=== PATIENT | male | born 1950 | race Caucasian/White ===

== ENCOUNTER 2016-08-14 23:15 | Emergency (ER) | payer OTHER ==
[~2016-08-14] VITALS: Ht 172.7 cm; Wt 90.0 kg
[~2016-08-14 23:15] MED LIST: ACID1TAB14 PO; ATEN50TA PO; CLIN-73 PO; LEVE750T70 PO; LEVO50TA83 PO
[2016-08-14 23:17] VITALS: Ht 172.7 cm; Wt 90.0 kg
--- NOTE | 2016-08-15 01:53 | RADRPT ---
PROCEDURE: XR Left Foot. CLINICAL INDICATION: Generalized pain in the left foot. TECHNIQUE: 3 views of the left foot was obtained. The images were reviewed on a PACS workstation. COMPARISON: 07/25/2016. FINDINGS: Postsurgical pain fixation of the first interphalangeal joint. Pain fixators are without significant business change manager the interval. The bones of the foot appear intact, with no evidence of fracture, dislocation, or subluxation. The joint spaces are preserved. The bone mineralization is normal. No significant soft tissue swelling is seen. Plantar calcaneal enthesophyte. IMPRESSION: 1. Remote fracture at the base of the first distal phalanx with fixation again seen, and findings a re without significant business change manager interval. 2. No evident acute fracture. RPTAT: [facility] Physician Ashly Date Time Electronically viewed and signed by Physician Ashly on 08/15/2016 01:53 RS/
--- NOTE | 2016-08-15 01:54 | RADRPT ---
PROCEDURE: XR Foot. CLINICAL INDICATION: Pain TECHNIQUE: AP, lateral and oblique views of the right foot was obtained. The images were reviewed on a PACS workstation. COMPARISON: None. FINDINGS: The bones of the foot appear intact, with no evidence of fracture, dislocation, or subluxation. There are degenerative changes involving the first metatarsophalangeal joint with joint space narrow ing, osteophytes and subchondral sclerosis. Prominent hallux valgus and bunion. Bone mineralization is normal. No significant soft tissue swelling is seen. Plantar calcaneal enthesophyte. IMPRESSION: Mild to moderate degenerative changes of the right foot, involving the first metatarsophalangeal cyril nt. RPTAT: [facility]U Physician Ashly Date Time Electronically viewed and signed by Physician Ashly on 08/15/2016 01:53 RS/
--- NOTE | 2016-08-15 02:19 | ERD ---
ER Documentation Chief Complaint Date/Time DATE: 08/15/16 TIME: 02:09 Chief Complaint left big toe pain HPI Patient is a 65-year-old male with past medical history of hypertension, alcohol abuse, hepatitis C, hypothyroidism, pancreatitis, seizure disorder who presents to the emergency department with left big toe pain. Patient states that he has been having pain to his big toe for the last week. He states his current pain is an 8 out of 10. Patient describes the pain to be throbbing. Patient also reports increased swelling to his bilateral lower extremities. Patient states that he is unable to walk on his feet secondary to pain. Patient reports that he had surgery on his left big toe here at [facility], however he did not get any discharge paperwork or prescriptions. Patient states that he do not take any antibiotics post operatively. Patient has not seen his surgeon post operatively for any follow-up visits. Patient denies any fever, chills, nausea, vomiting, chest pain, shortness of breath. ROS All systems reviewed and are negative except as per history of present illness. Medications Home Meds Active Scripts Hydrocodone/Acetaminophen ([place] 5-325 Tablet) 1 Each Tablet, 1 TAB PO Q6H Y for PAIN, #7 TAB Prov:GLENN BRUCE PA-C 08/15/16 Ibuprofen* (Motrin*) 600 Mg Tab, 600 MG PO Q6, #20 TAB Prov:GLENN BRUCE PA-C 08/15/16 Atenolol* (Atenolol*) 50 Mg Tablet, 25 MG PO DAILY, #30 TAB Prov:FELIPE COMBS 07/28/16 Levothyroxine Sodium* (Synthroid*) 50 Mcg Tablet, 50 MCG PO BEFORE BREAKFAST for 30 Days, TAB Prov:REGIDORFELIPE 07/28/16 Levetiracetam* (Keppra*) 750 Mg Tablet, 750 MG PO BID, #60 TAB Prov:REGIDORFELIPE 07/28/16 Lactobacillus Acidoph/Bulgaricus* (Floranex*) 1 Each Tablet, 1 TAB PO BID, #10 TAB Prov:REGIDORFELIPE 07/28/16 Clindamycin Hcl* (Clindamycin Hcl*) 300 Mg Capsule, 300 MG PO BID, #10 CAP Prov:REGIDORFELIPE 07/28/16 Allergies Allergies: Coded Allergies: No Known Drug Allergy (Verified Allergy, Unknown, 07/22/16) PMhx/Soc History of Surgery: No Anesthesia Reaction: No Hx Neurological Disorder: No Hx Respiratory Disorders: No Hx Cardiac Disorders: Yes Hx Psychiatric Problems: No Hx Miscellaneous Medical Probl: Yes (alcohol liver disease) Hx Alcohol Use: Yes Hx Substance Use: Yes Hx Tobacco Use: Yes Physical Exam Vitals Vital Signs Date Time Temp Pulse Resp B/P Pulse Ox O2 Delivery O2 Flow Rate FiO2 08/14/16 23:17 97.8 88 20 142/80 99 Physical Exam GENERAL: Well-developed, well-nourished male. Appears disheveled. HEAD: Normocephalic, atraumatic. EYES: Pupils are equally reactive bilaterally. EOMs grossly intact. No conjunctival erythema. ENT: Moist mucous membranes. No uvula deviation. No kissing tonsils. NECK: Supple. No lymphadenopathy or thyromegaly. No meningismus. LUNG: Clear to auscultation bilaterally. No rhonchi, wheezing, rales or coarse breath sounds. HEART: Regular rate and rhythm. No murmurs, rubs or gallops. ABDOMEN: No scars, ecchymosis or rashes noted. Soft, nontender, and nondistended. Positive bowel sounds in all four quadrants. No rebound tenderness , no guarding. (-) McBurneys point tenderness. No CVA tenderness. BACK: No midline tenderness. EXTREMITIES: Equal pulses bilaterally. No peripheral clubbing, cyanosis or edema. No unilateral leg swelling. NEUROLOGIC: Alert and oriented. Moving all four extremities without any difficulty. Normal speech. Steady gait. LEFT FOOT: +External pins noted on 1st big toe. +Loose sutures noted with peeling of skin. Previous lacerations appeared to be healing with no wound dehiscence. No active bleeding or discharge noted. No warmth or erythema noted. +Soft tissue swelling of foot, ankle and lower extremity. Tender to palpation of big toe, midfoot and lateral aspect of ankle. Sensation intact to light touch. Patient unable to raise big toe, invert foot or heriberto foot. 2+ DP and DT pulses. RIGHT FOOT: No deformity, erythema, ecchymosis. +Soft tissue swelling of foot, ankle and lower extremity. Skin intact. Full ROM of ankle. Non-tender to palpation. Sensation intact to light touch. Neurovascularly intact. 2+ DP and DT pulses. Results 24 hrs Current Medications Medications (Trade) Dose Ordered Sig/John Route PRN Reason Start Time Stop Time Status Last Admin Dose Admin Ibuprofen (Motrin) 600 mg ONCE ONCE PO 08/15/16 03:00 08/15/16 03:01 DC 08/15/16 02:55 Procedures/MDM ED COURSE: The patient was stable throughout ED course. I kept the patient and/or family informed of laboratory and diagnostic imaging results throughout the ED course. DIAGNOSTIC IMAGING: Read by radiologist. DIAGNOSTIC IMAGING REPORT Patient: LILIA BROWN : 1950 Age: 65 Sex: M MR #: [id number] DOS: 08/15/16105 Ordering MD: GLENN BRUCE PA-C Location: [facility] Room/Bed: PROCEDURE: XR Left Foot. CLINICAL INDICATION: Generalized pain in the left foot. TECHNIQUE: 3 views of the left foot was obtained. The images were reviewed on a PACS workstation. COMPARISON: 07/25/2016. FINDINGS: Postsurgical pain fixation of the first interphalangeal joint. Pain fixators are without significant career discovery teacher the interval. The bones of the foot appear intact, with no evidence of fracture, dislocation, or subluxation. The joint spaces are preserved. The bone mineralization is normal. No significant soft tissue swelling is seen. Plantar calcaneal enthesophyte. IMPRESSION: 1. Remote fracture at the base of the first distal phalanx with fixation again seen, and findings are without significant career discovery teacher interval. 2. No evident acute fracture. RPTAT: [facility]U Physician Ashly Date Time Electronically viewed and signed by Physician Ashly on 08/15/2016 01:53 RS/ CC: GLENN BRUCE PA-C DIAGNOSTIC IMAGING REPORT Patient: LILIA BROWN : 1950 Age: 65 Sex: M MR #: [id number] DOS: 08/15/16105 Ordering MD: GLENN BRUCE PA-C Location: [facility] Room/Bed: PROCEDURE: XR Foot. CLINICAL INDICATION: Pain TECHNIQUE: AP, lateral and oblique views of the right foot was obtained. The images were reviewed on a PACS workstation. COMPARISON: None. FINDINGS: The bones of the foot appear intact, with no evidence of fracture, dislocation, or subluxation. There are degenerative changes involving the first metatarsophalangeal joint with joint space narrowing, osteophytes and subchondral sclerosis. Prominent hallux valgus and bunion. Bone mineralization is normal. No significant soft tissue swelling is seen. Plantar calcaneal enthesophyte. IMPRESSION: Mild to moderate degenerative changes of the right foot, involving the first metatarsophalangeal joint. RPTAT: [facility]U Physician Ashly Date Time Electronically viewed and signed by Physician Ashly on 08/15/2016 01:53 RS/ CC: GLENN BRUCE PA-C DIAGNOSTIC IMAGING REPORT Patient: LILIA BROWN : 1950 Age: 65 Sex: M MR #: [id number] DOS: 08/15/16105 Ordering MD: GLENN BRUCE PA-C Location: [facility] Room/Bed: PROCEDURE: US DVT. CLINICAL INDICATION: Bilateral lower extremity pain and swelling. TECHNIQUE: Multiple longitudinal and transverse images of the bilateral lower extremity veins were obtained with rosado scale and color Doppler imaging. 2D grayscale measurements with compression, color Doppler flow, and augmentation was performed. The calf veins were interrogated as well. COMPARISON: Ultrasound venous lower extremity right of 02/18/2012 FINDINGS: The bilateral common femoral, superficial femoral and popliteal veins are normally compressible throughout. Color flow demonstrates normal filling of the vessel. Normal waveforms are visualized and there is normal response to augmentation. The posterior tibial and peroneal veins are visualized and are equally unremarkable. IMPRESSION: 1. No evidence of a deep vein thrombosis involving either lower extremity. RPTAT: HJES .Madi Hicks MD, MD Date Time Electronically viewed and signed by .Madi Hicks MD, on 08/15/2016 02:30 .S/ CC: GLENN BRUCE PA-C MEDICATIONS GIVEN: Ibuprofen. MEDICAL DECISION MAKING: Patient is a 65-year-old male who presents with left big toe pain 1 week. Patient reported that he had left big toe surgery here at [facility] but did not recall when. Patient stated that he was not given pain medication or antibiotics to go home with. Upon patient's chart review, it was noted that patient had ORIF of a fracture to the base distal phalanx of the left 1st toe with 2 pins placed on 07/25/16. Patient was to follow up at the [facility] in 1 week, which he did not do. Vital signs were reviewed. Patient is afebrile. Patient was not hypoxic. X-ray of the left foot showed remote fracture at the base of the first distal phalanx with fixation again seen , and findings are without significant career discovery teacher interval. Xray of the right foot showed mild to moderate degenerative changes of the right foot, involving the first metatarsophalangeal joint. Bilateral doppler venous ultrasounds were obtained given patient's significant lower extremity swelling. No evidence of a deep vein thrombosis involving either lower extremity. Low suspicion for new fractures or dislocations. Low suspicion for DVT. I discussed this case my supervising physician, Dr. Ding. At this time, blood work was not obtained given that patient is afebrile and his toe does not display signs of acute infection including erythema or warmth. Low suspicion for osteomyelitis. Patient was given Ibuprofen here in the emergency department. Patient will be provided with a prescription for Ibuprofen 600 mg and [place] 5-325 mg, 10 tabs, 0 refills for pain control. DISCHARGE: At this time, patient is stable for discharge and outpatient management. A social work consult was ordered to help the patient obtain a follow up appointment with [facility] in the next few days. Patient advised to take medication as prescribed for pain. I have instructed the patient to promptly return to the ER for any new or worsening symptoms including increased pain, fever, nausea, vomiting, weakness or LOC. The patient and/or family expressed understanding of and agreement with this plan. All questions were answered. Home care instructions were provided. Departure Diagnosis: Primary Impression: Pain of toe Laterality: left Qualified Code: M79.675 - Pain of toe of left foot Additional Impression: Toe fracture, left Encounter type: subsequent encounter Toe: great toe Fracture type: open Phalanx: unspecified phalanx Physeal involvement: involving physis Salter- Rogers Fracture Type: unspecified configuration Fracture healing: with delayed healing Qualified Code: S99.202G - Open physeal fracture of phalanx of left great toe with delayed healing, unspecified phalanx, unspecified physeal fracture configuration, subsequent encounter Condition: Stable Patient Instructions: Finger and Toe Fractures (Broken Finger or Toe), Fracture , Toe (Open) Referrals: [facility] Additional Instructions: Social work consult was obtained to assist the patient with getting an appointment with the [facility] in the next 1-2 days. Patient was advised to leave pins in until seen at the [facility]. Patient was advised to return to the worst department for any new or worsening concerns including severe pain, fever, chills, redness, swelling, warmth. GLENN BRUCE PA-C Aug 15, 2016 02:19
--- NOTE | 2016-08-15 02:31 | RADRPT ---
PROCEDURE: US DVT. CLINICAL INDICATION: Bilateral lower extremity pain and swelling. TECHNIQUE: Multiple longitudinal and transverse images of the bilateral lower extremity veins were obtained with rosado scale and color Doppler imaging. 2D grayscale measurements with compression, co fer Doppler flow, and augmentation was performed. The calf veins were interrogated as well. COMPARISON: Ultrasound venous lower extremity right of 02/18/2012 FINDINGS: The bilateral common femoral, superficial femoral and popliteal veins are normally compressible thro ughout. Color flow demonstrates normal filling of the vessel. Normal waveforms are visualized and there is normal response to augmentation. The posterior tibial and peroneal veins are visualized an d are equally unremarkable. IMPRESSION: 1. No evidence of a deep vein thrombosis involving either lower extremity. RPTAT: HJES .Madi Hicks MD, Date Time Electronically viewed and signed by .Madi Hicks MD, on 08/15/2016 02:30 .S/
[2016-08-15] MEDS ORDERED: IBUPROFEN 600 MG TAB PO ONE (03:00)
[2016-08-15] MEDS ORDERED: IBUP-1542 PO (03:08)
[2016-08-15] MEDS ORDERED: HYDR-906 PO (03:08)
== END 2016-08-15 08:26 | disposition home or self-care (01) ==
LOC: FTE 23:15
DX: S92.422G Displaced fracture of distal phalanx of left great toe, subsequent encounter for fracture with delayed healing (principal); I10 Essential (primary) hypertension; E03.9 Hypothyroidism, unspecified; X58.XXXD Exposure to other specified factors, subsequent encounter; Z87.891 Personal history of nicotine dependence
CPT/HCPCS: 73630; 93923

== ENCOUNTER 2016-08-17 00:30 | Emergency (ER) | payer OTHER ==
[~2016-08-17] VITALS: Ht 142.2 cm; Wt 72.0 kg
[~2016-08-17 00:30] MED LIST changes: +HYDR-906 PO; +IBUP-1542 PO
[2016-08-17 02:30] VITALS: Ht 142.2 cm; Wt 72.0 kg
--- NOTE | 2016-08-17 04:09 | ERA ---
ER Documentation Chief Complaint Date/Time DATE: 08/17/16 TIME: 04:09 Chief Complaint Left foot Pain HPI The patient is a is a 65-year-old male, presenting to the ER for left foot pain since he had surgery by the sales manager prearranged funerals Dr. Asher on July 25, 2016. He was seen in the ER 2 days ago and had bilateral feet x-ray and ultrasound of the left lower extremity that was unremarkable. He has not follow-up with a sales manager prearranged funerals yet. He denies fever, chills, neck pain, chest pain, abdomen, vomiting, diarrhea. He does smoke, drink Past medical history: Hypertension, hepatitis C, hypothyroidism, seizure disorder, chronic kidney disease, cirrhosis ROS All systems reviewed and are negative except as per history of present illness. Medications Home Meds Active Scripts Ibuprofen* (Motrin*) 600 Mg Tab, 600 MG PO Q6H Y for PAIN AND OR ELEVATED TEMP, #30 TAB Prov:BENNETT ALEXIS MD 08/17/16 Hydrocodone/Acetaminophen ([place] 5-325 Tablet) 1 Each Tablet, 1 TAB PO Q6H Y for PAIN, #7 TAB Prov:GLENN BRUCE PA-C 08/15/16 Ibuprofen* (Motrin*) 600 Mg Tab, 600 MG PO Q6, #20 TAB Prov:GLENN BRUCE PA-C 08/15/16 Atenolol* (Atenolol*) 50 Mg Tablet, 25 MG PO DAILY, #30 TAB Prov:FELIPE COMBS 07/28/16 Levothyroxine Sodium* (Synthroid*) 50 Mcg Tablet, 50 MCG PO BEFORE BREAKFAST for 30 Days, TAB Prov:REGIDORFELIPE 07/28/16 Levetiracetam* (Keppra*) 750 Mg Tablet, 750 MG PO BID, #60 TAB Prov:REGIDORFELIPE 07/28/16 Lactobacillus Acidoph/Bulgaricus* (Floranex*) 1 Each Tablet, 1 TAB PO BID, #10 TAB Prov:REGIDORFELIPE 07/28/16 Clindamycin Hcl* (Clindamycin Hcl*) 300 Mg Capsule, 300 MG PO BID, #10 CAP Prov:REGIDORFELIPE 07/28/16 Allergies Allergies: Coded Allergies: No Known Drug Allergy (Verified Allergy, Unknown, 07/22/16) PMhx/Soc History of Surgery: Yes (R Ankle Surgery) Anesthesia Reaction: No Hx Neurological Disorder: Yes (Syncope,PNA) Hx Respiratory Disorders: Yes (Sinusitis) Hx Cardiac Disorders: Yes Hx Psychiatric Problems: No Hx Miscellaneous Medical Probl: Yes (ARF,Pancreatitis,Cellulitis) Hx Alcohol Use: Yes (1 beer/day) Hx Substance Use: No Hx Tobacco Use: Yes (Quit 2005) Physical Exam Vitals Vital Signs Date Time Temp Pulse Resp B/P Pulse Ox O2 Delivery O2 Flow Rate FiO2 08/17/16 02:30 98.2 98 20 119/65 98 Physical Exam Const: No acute distress. Head: Atraumatic. Eyes: Normal Conjunctiva. ENT: Normal External Ears, Nose and Mouth. Neck: Full range of motion. No meningismus. Resp: Clear to auscultation bilaterally. Cardio: Regular rate and rhythm, no murmurs. Abd: Soft, non distended, normal bowel sounds, non tender. Skin: No petechiae or rashes. Back: No midline or flank tenderness. Ext: Left great toe is minimally edematous, it is not warm to touch, no open lesion Neur: Awake and alert. No focal deficit Psych: Normal Mood and Affect. Procedures/MDM MEDICAL MAKING DECISION: The patient is a 65-year-old male, presenting with acute postoperative. There is no sign for infection or trauma. The differential diagnoses considered include but are not limited to cellulitis, abscess, internal derangement Departure Diagnosis: Primary Impression: Acute postoperative pain Condition: Good Comments I discussed the findings with the patient. I advised the patient to follow-up with the sales manager prearranged funerals Dr. Aleman in about 1-2 days, sooner if needed and return if any concern. BENNETT ALEXIS MD Aug 17, 2016 04:09
[2016-08-17] MEDS ORDERED: IBUP-1542 PO (04:23)
[2016-08-17 04:30] VITALS: BP 134/77; PULSE 62; RESP 16
== END 2016-08-17 05:50 | disposition home or self-care (01) ==
LOC: E/R 00:30
DX: G89.18 Other acute postprocedural pain (principal); I12.9 Hypertensive chronic kidney disease with stage 1 through stage 4 chronic kidney disease, or unspecified chronic kidney disease; N18.9 Chronic kidney disease, unspecified; E03.9 Hypothyroidism, unspecified; F17.210 Nicotine dependence, cigarettes, uncomplicated
CPT/HCPCS: 99283